=== PATIENT | female | born 1950 | race Caucasian/White ===

== ENCOUNTER 2017-01-13 01:09 | Emergency (ER) | payer MEDICARE, OTHER ==
[2017-01-13 02:00] LABS: CHLORIDE,CL 103 mmol/L (101-111); SODIUM,NA 141 mmol/L (135-145)
[2017-01-13] MEDS ORDERED: Meclizine 12.5 MG Tab PO ONE ×2 (02:36→02:56)
[2017-01-13] MEDS ORDERED: Ondansetron 4 MG/2 ML SDV IV ONE (02:36)
[2017-01-13] MEDS ORDERED: Ondansetron 4 MG Tab.DIS PO ONE (02:56)
[2017-01-13] MEDS ORDERED: Ondansetron 4 MG Tab.DIS ONE (02:56)
[2017-01-13] MEDS ORDERED: Meclizine 12.5 MG Tab ONE ×2 (02:56→02:58)
--- NOTE | 2017-01-13 03:03 | EDM.PDOC ---
ED HPI GENERAL MEDICAL PROBLEM - General Chief Complaint: General Stated Complaint: DIZZY Time Seen by Provider: 01/13/17 01:25 Source of Information: Reports: Patient History Limitations: Reports: No Limitations - History of Present Illness INITIAL COMMENTS - FREE TEXT/NARRATIVE: c/o dizziness, worse with movement, room spinning nauseated with dizziness. Similar episode early yesterday am, resolved. No recent URI sx, No fever, no headache, non smoker, no palpations. BP controlled with medication, notes buzzing to right ear at times. No weakness. - Related Data Allergies Allergy/AdvReac Type Severity Reaction Status Date / Time No Known Allergies Allergy Verified 01/13/17 01:25 Home Meds: Home Meds Celecoxib 200 mg PO DAILY 01/13/17 [History] Verapamil HCl [Verapamil Sr] 360 mg PO BEDTIME 01/13/17 [History] metFORMIN HCl [Metformin HCl] 500 mg PO DAILY 01/13/17 [History] Past Medical History Cardiovascular History: Reports: High Cholesterol, Hypertension Endocrine/Metabolic History: Reports: Diabetes, Type II Social & Family History - Tobacco Use Smoking Status *Q: Never Smoker Second Hand Smoke Exposure: No - Caffeine Use Caffeine Use: Reports: Soda - Recreational Drug Use Recreational Drug Use: No ED ROS GENERAL - Review of Systems Review Of Systems: See Below Constitutional: Denies: Fever, Chills, Weakness HEENT: Reports: Glasses, Vertigo Respiratory: Reports: No Symptoms Cardiovascular: Reports: No Symptoms GI/Abdominal: Reports: No Symptoms : Reports: No Symptoms Musculoskeletal: Reports: No Symptoms Skin: Reports: No Symptoms Neurological: Reports: Dizziness. Denies: Numbness, Paresthesia, Tingling, Tremors, Trouble Speaking, Difficulty Walking, Weakness, Change in Speech, Gait Disturbance Psychiatric: Reports: No Symptoms ED EXAM, GENERAL - Physical Exam Exam: See Below Exam Limited By: Uncooperative General Appearance: Moderate Distress (nauseated. Lies quietly to prevent movement and spinning sensation) Eye Exam: Bilateral Eye: EOMI, PERRL Ears: Normal External Exam, Hearing Grossly Normal Nose: Normal Inspection Throat/Mouth: Normal Inspection, Normal Lips, Normal Oropharynx, Normal Voice Head: Atraumatic, Normocephalic Neck: Normal Inspection, Full Range of Motion Respiratory/Chest: No Respiratory Distress, Lungs Clear, Normal Breath Sounds, No Accessory Muscle Use Cardiovascular: Normal Peripheral Pulses, Regular Rate, Rhythm, No Edema, Systolic Murmur (grade 1 (chronic per patient since teen years)) GI/Abdominal: Normal Bowel Sounds, Soft Back Exam: Normal Inspection, Full Range of Motion Extremities: Normal Inspection, Normal Range of Motion, No Pedal Edema Neurological: Alert, Oriented, CN II-XII Intact, Normal Cognition, Normal Reflexes, No Motor/Sensory Deficits Psychiatric: Normal Affect, Normal Mood Skin Exam: Warm, Dry, Intact, Normal Color, No Rash Course - Vital Signs Last Recorded V/S: Last Vital Signs Temp 96.8 F 01/13/17 03:13 Pulse 71 01/13/17 03:13 Resp 17 01/13/17 03:13 BP 138/71 01/13/17 03:13 Pulse Ox 98 01/13/17 03:13 - Orders/Labs/Meds Orders: Active Orders 24 hr Category Date Time Status EKG 12 Lead [EKG Documentation Completion] [RC] URGENT Care 01/13/17 01:29 Active Labs: Laboratory Tests 01/13/17 01/13/17 Range/Units 01:32 01:32 WBC 10.5 H (5.0-10.0) 10^3/uL RBC 4.65 (4.2-5.4) 10^6/uL Hgb 14.5 (12.0-16.0) g/dL Hct 42.3 (37.0-47.0) % MCV 91.0 (80-100) fL MCH 31.2 (27.0-34.0) pg MCHC 34.3 (33.0-35.0) g/dL Plt Count 272 (150-450) 10^3/uL Neut % (Auto) 35.0 L (42.2-75.2) % Lymph % (Auto) 48.2 (20.5-50.1) % [place] % (Auto) 10.2 H (2-8) % Eos % (Auto) 6.5 H (1.0-3.0) % Baso % (Auto) 0.1 (0.0-1.0) % Sodium 141 (135-145) mmol/L Potassium 3.7 (3.6-5.0) mmol/L Chloride 103 (101-111) mmol/L Carbon Dioxide 25.0 (21.0-31.0) mmol/L Anion Gap 16.7 BUN 20 H (7-18) mg/dL Creatinine 0.7 (0.6-1.3) mg/dL Est Cr Clr Drug Dosing 70.18 mL/min Estimated GFR (MDRD) > 60 BUN/Creatinine Ratio 28.57 Glucose 177 H (74-105) mg/dL Calcium 9.8 (8.4-10.2) mg/dl Total Bilirubin 0.5 (0.2-1.0) mg/dL AST 30 (10-42) IU/L ALT 35 (10-60) IU/L Alkaline Phosphatase 41 L (42-121) IU/L Troponin I 0.02 (0.00-0.02) ng/ml Total Protein 7.5 (6.7-8.2) g/dl Albumin 4.0 (3.2-5.5) g/dl Globulin 3.5 Albumin/Globulin Ratio 1.14 Meds: Medications Discontinued Medications Generic Name Dose Route Start Last Admin Trade Name Freq PRN Reason Stop Dose Admin Meclizine HCl 25 mg 01/13/17 02:36 01/13/17 02:43 Antivert PO 01/13/17 02:37 25 mg ONETIME ONE Administration Meclizine HCl Confirm 01/13/17 02:56 Antivert Administered 01/13/17 02:57 Dose 12.5 mg .ROUTE .STK-MED ONE Meclizine HCl Confirm 01/13/17 02:58 Antivert Administered 01/13/17 02:59 Dose 12.5 mg .ROUTE .STK-MED ONE Ondansetron HCl 4 mg 01/13/17 02:36 01/13/17 02:43 Zofran IV 01/13/17 02:37 4 mg ONETIME ONE Administration Ondansetron HCl Confirm 01/13/17 02:56 Zofran Odt Administered 01/13/17 02:57 Dose 4 mg .ROUTE .STK-MED ONE - Radiology Interpretation Free Text/Narrative:: Head CT negative - Re-Assessments/Exams Free Text/Narrative Re-Assessment/Exam: 01/13/17 04:15 nausea and dizziness resolved with meclazine and zofran. Discussed need to follow with PCP if any change in sx or weakness needs urgent follow up. MRI may be indicated. for further evaluation. Departure - Departure Time of Disposition: 02:57 Disposition: Home, Self-Care 01 Condition: Good Clinical Impression: Vertigo - Discharge Information Instructions: Vertigo, [id number], Labyrinthitis, [id number] Referrals: Portillo Null MD [Primary Care Provider] - Forms: ED Department Discharge Additional Instructions: Meclizine 25mg one every 6 hours as needed Zofran 4mg every 6 hours as needed for nausea follow up with primary care Urgent follow up if any weakness, blurred vision or facial droop.. limit salt intake - My Orders Last 24 Hours: My Active Orders 01/13/17 01:29 EKG 12 Lead [EKG Documentation Completion] [RC] URGENT - Assessment/Plan Last 24 Hours: My Active Orders 01/13/17 01:29 EKG 12 Lead [EKG Documentation Completion] [RC] URGENT
[2017-01-13 03:39] VITALS: BP 138/71
--- NOTE | 2017-01-17 09:59 | EKG ---
01/13/2017- MANDA THAO - EKG per my reading shows sinus rhythm at the rate of 70s with no acute ST changes. [facility] /[id number]
== END 2017-01-13 03:13 | disposition home or self-care (01) ==
LOC: DL.ED 01:09
DX: R42 Dizziness and giddiness (principal); E11.9 Type 2 diabetes mellitus without complications; I10 Essential (primary) hypertension; E78.00 Pure hypercholesterolemia, unspecified; Z79.84 Long term (current) use of oral hypoglycemic drugs; Z79.899 Other long term (current) drug therapy
CPT/HCPCS: 36415; 70450; 80053; 84484; 85025; 93005; 96374; 99284; A9270; J2405; 93010

== ENCOUNTER 2017-05-25 04:32 | Emergency (ER) | payer MEDICARE, OTHER ==
[2017-05-25] MEDS ORDERED: Phenazopyridine 95 MG Tab PO ONE (05:06)
[2017-05-25] MEDS ORDERED: Levofloxacin 500 MG Tab PO ONE (05:07)
--- NOTE | 2017-05-25 05:11 | EDM.PDOC ---
ED HPI GENERAL MEDICAL PROBLEM - General Chief Complaint: Genitourinary Problem Stated Complaint: BLADDER INFECTION Time Seen by Provider: 05/25/17 04:50 Source of Information: Reports: Patient History Limitations: Reports: No Limitations - History of Present Illness INITIAL COMMENTS - FREE TEXT/NARRATIVE: ED with c/o of increased urinary frequency and burning with urination. Onset last liza mild worse when woke during night. No noted fever or chills. Prior hx of UTI. Recent knee replacement 2 weeks ago. Bladder Pain Score (Numeric/FACES): 4 - Related Data Allergies Allergy/AdvReac Type Severity Reaction Status Date / Time No Known Allergies Allergy Verified 05/25/17 04:45 Home Meds: Home Meds Celecoxib 200 mg PO DAILY 01/13/17 [History] Verapamil HCl [Verapamil Sr] 360 mg PO BEDTIME 01/13/17 [History] metFORMIN HCl [Metformin HCl] 500 mg PO DAILY 01/13/17 [History] Aspirin 325 mg PO BID 05/25/17 [History] Calcium Carbonate/Vitamin D3 [Calcium 600 + Vit D 200] 1 tab PO DAILY 05/25/17 [ History] Multivitamin [One Daily] 1 tab PO DAILY 05/25/17 [History] Valsartan/Hydrochlorothiazide [Valsartan-Hctz 320-25 mg Tab] 1 tab PO DAILY [History] atorvaSTATin [Lipitor] 20 mg PO DAILY 05/25/17 [History] Past Medical History HEENT History: Reports: Impaired Vision Cardiovascular History: Reports: High Cholesterol, Hypertension Musculoskeletal History: Reports: Osteoarthritis Endocrine/Metabolic History: Reports: Diabetes, Type II - Past Surgical History GI Surgical History: Reports: Appendectomy Musculoskeletal Surgical History: Reports: Arthroscopic Knee Social & Family History - Tobacco Use Smoking Status *Q: Never Smoker Second Hand Smoke Exposure: No - Caffeine Use Caffeine Use: Reports: None - Recreational Drug Use Recreational Drug Use: No ED ROS GENERAL - Review of Systems Review Of Systems: See Below Constitutional: Reports: No Symptoms HEENT: Reports: No Symptoms Respiratory: Reports: No Symptoms Cardiovascular: Reports: No Symptoms GI/Abdominal: Reports: No Symptoms : Reports: Dysuria, Frequency, Hematuria, Pain, Urgency. Denies: Flank Pain Musculoskeletal: Reports: Joint Pain (knee post surgical) Skin: Reports: Wound (surgical incision) Neurological: Reports: No Symptoms ED EXAM, RENAL/ - Physical Exam Exam: See Below Exam Limited By: No Limitations General Appearance: Alert, No Apparent Distress Eye Exam: Bilateral Eye: EOMI Ears: Normal External Exam Nose: Normal Inspection Throat/Mouth: Normal Inspection Neck: Normal Inspection Respiratory/Chest: No Respiratory Distress, Normal Breath Sounds Cardiovascular: Normal Peripheral Pulses, Regular Rate, Rhythm GI/Abdominal: Normal Bowel Sounds, Soft, Other (supropubic tenderness). No: No Organomegaly Back Exam: No: CVA Tenderness (L), CVA Tenderness (R) Extremities: Normal Inspection, Joint Swelling (right knee), Limited Range of Motion (right knee), Increased Warmth, Redness (mild) Neurological: Alert, Oriented Psychiatric: Normal Affect Skin Exam: Warm, Dry, Wound/Incision (right knee surgical incision, steri- strips intact no drainage) Course - Vital Signs Last Recorded V/S: Last Vital Signs Temp 99.0 F 05/25/17 04:40 Pulse 130 H 05/25/17 04:40 Resp 18 05/25/17 04:40 BP 146/65 H 05/25/17 04:40 Pulse Ox 100 05/25/17 04:40 - Orders/Labs/Meds Orders: Active Orders 24 hr Category Date Time Status CULTURE BLOOD [BC] Stat Lab 05/25/17 05:00 Received CULTURE URINE [RM] Stat Lab 05/25/17 04:34 Received Labs: Laboratory Tests 05/25/17 05/25/17 05/25/17 Range/Units 04:34 05:00 05:00 WBC 18.8 H (5.0-10.0) 10^3/uL RBC 4.48 (4.2-5.4) 10^6/uL Hgb 13.7 (12.0-16.0) g/dL Hct 40.4 (37.0-47.0) % MCV 90.2 (80-100) fL MCH 30.6 (27.0-34.0) pg MCHC 33.9 (33.0-35.0) g/dL Plt Count 532 H D (150-450) 10^3/uL Neut % (Auto) 74.4 (42.2-75.2) % Lymph % (Auto) 17.2 L (20.5-50.1) % [place] % (Auto) 6.0 (2-8) % Eos % (Auto) 2.2 (1.0-3.0) % Baso % (Auto) 0.2 (0.0-1.0) % Sodium 133 L (135-145) mmol/L Potassium 3.8 (3.6-5.0) mmol/L Chloride 98 L (101-111) mmol/L Carbon Dioxide 24.0 (21.0-31.0) mmol/L Anion Gap 14.8 BUN 12 (7-18) mg/dL Creatinine 0.7 (0.6-1.3) mg/dL Est Cr Clr Drug Dosing 67.34 mL/min Estimated GFR (MDRD) > 60 BUN/Creatinine Ratio 17.14 Glucose 163 H (74-105) mg/dL Lactic Acid (0.5-2.2) mmol/L Calcium 10.0 (8.4-10.2) mg/dl Total Bilirubin 0.3 (0.2-1.0) mg/dL AST 20 (10-42) IU/L ALT 17 (10-60) IU/L Alkaline Phosphatase 52 (42-121) IU/L Total Protein 8.1 (6.7-8.2) g/dl Albumin 3.8 (3.2-5.5) g/dl Globulin 4.3 Albumin/Globulin Ratio 0.88 Urine Color Yellow (YELLOW) Urine Appearance Turbid (CLEAR) Urine pH 5.5 (5.0-9.0) Ur Specific [place] 1.020 (1.005-1.030) Urine Protein >=300 H (NEGATIVE) Urine Glucose (UA) Negative (NEGATIVE) Urine Ketones Negative (NEGATIVE) Urine Occult Blood Large H (NEGATIVE) Urine Nitrite Positive H (NEGATIVE) Urine Bilirubin Negative (NEGATIVE) Urine Urobilinogen 0.2 (0.2-1.0) mg/dL Ur Leukocyte Esterase Large H (NEGATIVE) Urine RBC >100 H /HPF Urine WBC >100 H (0-5/HPF) /HPF Ur Epithelial Cells Moderate H /HPF Urine Bacteria Many H (0-FEW/HPF) /HPF 05/25/17 Range/Units 05:00 WBC (5.0-10.0) 10^3/uL RBC (4.2-5.4) 10^6/uL Hgb (12.0-16.0) g/dL Hct (37.0-47.0) % MCV (80-100) fL MCH (27.0-34.0) pg MCHC (33.0-35.0) g/dL Plt Count (150-450) 10^3/uL Neut % (Auto) (42.2-75.2) % Lymph % (Auto) (20.5-50.1) % [place] % (Auto) (2-8) % Eos % (Auto) (1.0-3.0) % Baso % (Auto) (0.0-1.0) % Sodium (135-145) mmol/L Potassium (3.6-5.0) mmol/L Chloride (101-111) mmol/L Carbon Dioxide (21.0-31.0) mmol/L Anion Gap BUN (7-18) mg/dL Creatinine (0.6-1.3) mg/dL Est Cr Clr Drug Dosing mL/min Estimated GFR (MDRD) BUN/Creatinine Ratio Glucose (74-105) mg/dL Lactic Acid 2.5 H (0.5-2.2) mmol/L Calcium (8.4-10.2) mg/dl Total Bilirubin (0.2-1.0) mg/dL AST (10-42) IU/L ALT (10-60) IU/L Alkaline Phosphatase (42-121) IU/L Total Protein (6.7-8.2) g/dl Albumin (3.2-5.5) g/dl Globulin Albumin/Globulin Ratio Urine Color (YELLOW) Urine Appearance (CLEAR) Urine pH (5.0-9.0) Ur Specific [place] (1.005-1.030) Urine Protein (NEGATIVE) Urine Glucose (UA) (NEGATIVE) Urine Ketones (NEGATIVE) Urine Occult Blood (NEGATIVE) Urine Nitrite (NEGATIVE) Urine Bilirubin (NEGATIVE) Urine Urobilinogen (0.2-1.0) mg/dL Ur Leukocyte Esterase (NEGATIVE) Urine RBC /HPF Urine WBC (0-5/HPF) /HPF Ur Epithelial Cells /HPF Urine Bacteria (0-FEW/HPF) /HPF Meds: Medications Discontinued Medications Generic Name Dose Route Start Last Admin Trade Name Freq PRN Reason Stop Dose Admin Levofloxacin 500 mg 05/25/17 05:07 05/25/17 05:18 Levaquin PO 05/25/17 05:08 500 mg ONETIME ONE Administration Phenazopyridine HCl 190 mg 05/25/17 05:06 05/25/17 05:18 Urinary Pain Relief PO 05/25/17 05:07 190 mg ONETIME ONE Administration Departure - Departure Time of Disposition: 06:04 Disposition: Home, Self-Care 01 Condition: Good Clinical Impression: UTI, Urinary tract infectious disease Status post knee replacement Qualifiers: Laterality: right Qualified Code(s): Z96.651 - Presence of right artificial knee joint - Discharge Information Instructions: Urinary Tract Infection, Adult, [id number] Forms: ED Department Discharge Additional Instructions: levaquin 500mg one daily for one week pyridium 200mg one every 8 hours as needed for urgency and burning increase fluid intake void more often recheck clinic monday - My Orders Last 24 Hours: My Active Orders 05/25/17 04:34 CULTURE URINE [RM] Stat 05/25/17 05:00 CULTURE BLOOD [BC] Stat - Assessment/Plan Last 24 Hours: My Active Orders 05/25/17 04:34 CULTURE URINE [RM] Stat 05/25/17 05:00 CULTURE BLOOD [BC] Stat
[2017-05-25 05:45] LABS: CHLORIDE,CL 98 mmol/L (101-111); SODIUM,NA 133 mmol/L (135-145)
[2017-05-25 06:09] VITALS: BP 129/72
== END 2017-05-25 06:14 | disposition home or self-care (01) ==
LOC: DL.ED 04:32
DX: N39.0 Urinary tract infection, site not specified (principal); Z96.651 Presence of right artificial knee joint; I10 Essential (primary) hypertension; E78.00 Pure hypercholesterolemia, unspecified; E11.9 Type 2 diabetes mellitus without complications; Z79.82 Long term (current) use of aspirin; Z79.84 Long term (current) use of oral hypoglycemic drugs; Z79.899 Other long term (current) drug therapy
CPT/HCPCS: 36415; 80053; 81001; 83605; 85025; 87040; 87086; 99283; A9270; 87088; 87186

== ENCOUNTER 2020-02-06 21:05 | Emergency (ER) | payer MEDICARE, OTHER ==
--- NOTE | 2020-02-06 21:25 | EDM.PDOC ---
ED HPI GENERAL MEDICAL PROBLEM - General Chief Complaint: Gastrointestinal Problem Stated Complaint: JAIME TURNED IN TO BLOOD ALSO Time Seen by Provider: 02/06/20 21:23 Source of Information: Reports: Patient History Limitations: Reports: No Limitations - History of Present Illness INITIAL COMMENTS - FREE TEXT/NARRATIVE: been eating lot of corn and seeds today and started diarrhoea few hours ago that turned bloody and without abd pain. h/o divertic & haemorrhoids too. also got light headed and dizzy like vertigo and took meclizine INTAKE NURSE and now feels fine. - Related Data Allergies Allergy/AdvReac Type Severity Reaction Status Date / Time No Known Allergies Allergy Verified 02/06/20 21:14 Home Meds: Home Meds Celecoxib 200 mg PO DAILY 01/13/17 [History] Verapamil HCl [Verapamil Sr] 360 mg PO BEDTIME 01/13/17 [History] metFORMIN HCl [Metformin HCl] 1,000 mg PO BID 01/13/17 [History] Calcium Carbonate/Vitamin D3 [Calcium 600 + Vit D 200] 1 tab PO DAILY 05/25/17 [History] Multivitamin [One Daily] 1 tab PO DAILY 05/25/17 [History] Valsartan/Hydrochlorothiazide [Valsartan-Hctz 320-25 mg Tab] 1 tab PO DAILY 05/25/17 [History] atorvaSTATin [Lipitor] 20 mg PO DAILY 05/25/17 [History] Past Medical History HEENT History: Reports: Impaired Vision Cardiovascular History: Reports: High Cholesterol, Hypertension Musculoskeletal History: Reports: Osteoarthritis Endocrine/Metabolic History: Reports: Diabetes, Type II - Past Surgical History GI Surgical History: Reports: Appendectomy Musculoskeletal Surgical History: Reports: Arthroscopic Knee Social & Family History - Caffeine Use Caffeine Use: Reports: None ED ROS GENERAL - Review of Systems Review Of Systems: Comprehensive ROS is negative, except as noted in HPI. ED EXAM, GI/ABD - Physical Exam Exam: See Below Exam Limited By: No Limitations General Appearance: Alert, WD/WN, No Apparent Distress Ears: Hearing Grossly Normal Throat/Mouth: Normal Voice, No Airway Compromise Head: Atraumatic Neck: Non-Tender, Full Range of Motion Respiratory/Chest: No Respiratory Distress Cardiovascular: Regular Rate, Rhythm GI/Abdominal Exam: Soft, Non-Tender, No Distention. No: Guarding, Rigid, Rebound, Tender Neurological: Alert, Oriented, Normal Cognition, Normal Gait, No Motor/Sensory Deficits Psychiatric: Normal Affect, Normal Mood Skin Exam: Warm, Dry, Normal Color Lymphatic: No Adenopathy Course - Vital Signs Last Recorded V/S: Last Vital Signs Temp 36.3 C 02/06/20 21:29 Pulse 117 H 02/06/20 21:29 Resp 18 02/06/20 21:29 BP 110/61 02/06/20 21:29 Pulse Ox 98 02/06/20 21:29 - Orders/Labs/Meds Orders: Active Orders 24 hr Category Date Time Status Sodium Chloride 0.9% [Normal Saline] 1,000 ml Med 02/06/20 21:30 Active IV ASDIRECTED Medication Orders Sodium Chloride (Normal Saline) 1,000 mls @ 500 mls/hr IV ASDIRECTED JAS Last Admin: 02/06/20 21:39 Dose: 500 mls/hr Documented by: TINA Labs: Laboratory Tests 02/06/20 02/06/20 02/06/20 Range/Units 21:25 21:25 21:25 WBC 15.4 H (5.0-10.0) 10^3/uL RBC 4.22 (4.2-5.4) 10^6/uL Hgb 13.0 (12.0-16.0) g/dL Hct 37.8 (37.0-47.0) % MCV 89.6 (80-100) fL MCH 30.8 (27.0-34.0) pg MCHC 34.4 (33.0-35.0) g/dL Plt Count 307 D (150-450) 10^3/uL Neut % (Auto) 62.0 (42.2-75.2) % Lymph % (Auto) 28.2 (20.5-50.1) % [place] % (Auto) 6.4 (2-8) % Eos % (Auto) 3.3 H (1.0-3.0) % Baso % (Auto) 0.1 (0.0-1.0) % PT 10.9 (9.0-12.0) SEC INR 1.2 (0.9-1.2) APTT 21.3 L (22.0-34.0) SEC Sodium 139 (136-145) mmol/L Potassium 4.2 (3.5-5.1) mmol/L Chloride 102 (98-107) mmol/L Carbon Dioxide 25 (21-32) mmol/L Anion Gap 16.2 H (7-13) mEq/L BUN 25 H (7-18) mg/dL Creatinine 1.15 H (0.55-1.02) mg/dL Est Cr Clr Drug Dosing 40.96 mL/min Estimated GFR (MDRD) 47 BUN/Creatinine Ratio 21.7 (No establ ref range) Glucose 189 H (74-99) mg/dL Calcium 9.5 (8.5-10.1) mg/dL Total Bilirubin 0.4 (0.2-1.0) mg/dL AST 25 (15-37) U/L ALT 55 (14-59) U/L Alkaline Phosphatase 43 L (46-116) U/L Total Protein 7.1 (6.4-8.2) g/dL Albumin 3.6 (3.4-5.0) g/dL Globulin 3.5 Albumin/Globulin Ratio 1.0 Meds: Medications Generic Name Dose Route Start Last Admin Trade Name Freq PRN Reason Stop Dose Admin Sodium Chloride 1,000 mls @ 500 mls/hr 02/06/20 21:30 02/06/20 21:39 Normal Saline IV 500 mls/hr ASDIRECTED JAS Administration - Re-Assessments/Exams Free Text/Narrative Re-Assessment/Exam: 02/06/20 22:37 results discussed with pt who is still pain free and feels fine now. states was concerned and will stop eating corn and seeds. Departure - Departure Time of Disposition: 22:38 Disposition: Home, Self-Care 01 Condition: Good Clinical Impression: Gastroenteritis, Diarrhea - Discharge Information Instructions: Diarrhea, Adult, [id number] Forms: ED Department Discharge Additional Instructions: 1) avoid corn and seeds 2) follow up at clinic 3) recheck if there is any change or concern Sepsis Event Note (ED) - Focused Exam Vital Signs: Vital Signs Temp Pulse Resp BP Pulse Ox 02/06/20 21:29 36.3 C 117 H 18 110/61 98 - My Orders Last 24 Hours: My Active Orders 02/06/20 21:30 Sodium Chloride 0.9% [Normal Saline] 1,000 ml IV ASDIRECTED - Assessment/Plan Last 24 Hours: My Active Orders 02/06/20 21:30 Sodium Chloride 0.9% [Normal Saline] 1,000 ml IV ASDIRECTED
[2020-02-06] MEDS ORDERED: Sodium Chloride 0.9% 1,000 ML IV SCH (21:30)
[2020-02-06 21:31] VITALS: BP 110/61; PULSE 117
[2020-02-06 21:53] LABS: ANION GAP 16.2 mEq/L (7-13)
[2020-02-06 22:22] LABS: PTT,PARTIAL THROMBOPLSTIN TIME 21.3 SEC (22.0-34.0)
== END 2020-02-06 22:50 | disposition home or self-care (01) ==
LOC: DL.ED 21:05
DX: K52.9 Noninfective gastroenteritis and colitis, unspecified (principal); E78.00 Pure hypercholesterolemia, unspecified; I10 Essential (primary) hypertension; M19.90 Unspecified osteoarthritis, unspecified site; E11.9 Type 2 diabetes mellitus without complications; Z79.84 Long term (current) use of oral hypoglycemic drugs; Z79.899 Other long term (current) drug therapy
CPT/HCPCS: 36415; 80053; 85025; 85610; 85730; 96360; 99284; J7030; 99282